=== PATIENT | female | born 1995 | race Caucasian/White ===

== ENCOUNTER 2016-06-26 05:37 | Inpatient (IN) | payer OTHER ==
[2016-06-26] MEDS ORDERED: OXYTOCIN 1,000 ML IV SCH (05:42)
[2016-06-26] MEDS ORDERED: LR 1,000 ML IV SCH ×2 (05:42→21:00)
[2016-06-26] MEDS ORDERED: BUTORPHANOL 1 MG/ML VIAL IV PRN ×2 (05:42→19:54)
[2016-06-26] MEDS ORDERED: LR 500 ML IV PRN ×2 (05:42→14:35)
[2016-06-26 05:58] LABS: AUTOMATED BASOPHIL 0.5 % (0-2); AUTOMATED EOSINOPHIL 0.9 % (0-5); AUTOMATED LYMPH 29.2 % (17-44); AUTOMATED MONOCYTE 7.3 % (3-10); AUTOMATED NEUTROPHIL 62.1 % (45-76); MPV 11.2 fL (7.4-10.4)
[2016-06-26] MEDS ORDERED: LIDOCAINE 1% 30 ML VIAL (PRESERVATIVE FREE) ONE (06:14)
[2016-06-26 06:17] VITALS: BMI 34.4
--- NOTE | 2016-06-26 07:35 | HISTPHYS ---
- HISTORY OF PRESENT ILLNESS Age: 20 Estimated Due Date: 06/26/16 Gestational Age: 40 : 1 Para: 0 Patient Presents to:: Labor & Delivery Presents for:: Induction of Labor (Pt has requested elective induction of labor) Current : No Complications, GBS - - REVIEW OF SYSTEMS Reports/Denies: Reports: Contractions (Mild and irregular), Movement ( Normal). Denies: Complaints, Vaginal Bleeding, Leaking Fluid Pain: Reports: None - ALLERGIES Allergies Allergy/AdvReac Type Severity Reaction Status Date / Time Latex, Natural Rubber Allergy Hives* Verified 06/26/16 06:32 - PAST MEDICAL HISTORY Reports: Depression, GI Disorders (IBS) - PAST SURGICAL HISTORY Reports: Tonsillectomy - FAMILY HISTORY Family History: Noncontributory - SOCIAL HISTORY Travel Outside of [place] in the Last 3 Months?: No Smoking Status: Former smoker Social History: Denies: Alcohol Use Marital Status: Single (Never ) - GENITOURINARY HISTORY Gynecologic History: Reports: None HX : 1 Para: 0 Live Deliveries (# of pregnancies resulting in a live ): 0 - PHYSICAL EXAM Vital Signs:: Temperature: 97.7 F (06/26/16 06:19) HR: 85 (06/26/16 06:19) RR: 18 (06/26/16 06:19) BP: 140/82 (06/26/16 06:19) Pulse Ox: () GENERAL: Alert, Oriented, No Acute Distress ABDOMEN: Gravid, Non-Distended, Non-Tender, Soft Fundal Height (cm): 39 GENITOURINARY: Normal. negative: Lesions, Mass, Swelling, Discharge MUSCULOSKELETAL: Normal. negative: Atrophy EXTERMITIES: Moves All Extremeties. negative: Pain/Tenderness Dilation (cm): 2 Effacement (%): 60 Station: -3 Heart Rate: 130 Reactive, Moderate Variability. negative: Decelerations Contractions: Irregular Membranes: Intact Amniotic Fluid: Clear - PLAN Admit, Induction of Labor (Pt counseled on the risks of hyperstimulation with distress and emergent . )
[2016-06-26] MEDS ORDERED: Vaccine Screening Complete SCH (08:00)
[2016-06-26] MEDS ORDERED: PROPOFOL 200 MG/20 ML VIAL IV ONE (11:25)
[2016-06-26] MEDS ORDERED: LIDOCAINE 4% 5 ML AMPULE NEB ONE (11:25)
[2016-06-26] MEDS ORDERED: SUCCINYLCHOLINE 20 MG/1 ML INJ 10 ML MDV IV ONE (11:25)
[2016-06-26] MEDS ORDERED: ONDANSETRON HCL 4 MG/2 ML VIAL IV ONE (11:25)
[2016-06-26] MEDS ORDERED: Fentanyl/Bupivacaine 100 ML EPI ONE (13:55)
[2016-06-26] MEDS ORDERED: ONDANSETRON HCL 4 MG/2 ML VIAL IV PRN (14:35)
[2016-06-26] MEDS ORDERED: EPHEDrine 50 MG/ML VIAL IV PRN (14:35)
[2016-06-26] MEDS ORDERED: DIPHENHYDRAMINE 50 MG/ML VIAL IV PRN (14:35)
[2016-06-26] MEDS ORDERED: METOCLOPRAMIDE 10 MG/2 ML VIAL IV PRN (14:35)
[2016-06-26] MEDS ORDERED: NALOXONE 0.4 MG/ML AMPULE IV PRN (14:35)
[2016-06-26] MEDS ORDERED: LR 500 ML IV ONE (14:35)
--- NOTE | 2016-06-26 14:36 | HIM.ANES ---
Anesthesia Evaluation & Plan - Focused Review of Systems Cardiac History: No: Hx Cardiac Disorders HEENT: Yes: Other HEENT Problems Hx Other HEENT Problems: LARGE TONSILS, NASAL CONGESTION Gastrointestinal: Yes: Hx Gastroesophageal Reflux Disease, Hx Gastrointestinal Disorders Neurological/Musculoskeletal: Yes: Hx Migraine, Hx Neurological Disorders Psychological: Yes Hx Anxiety, Yes Hx Mental/Emotional Disorders, Yes Hx Bipolar Disorder HX Other Psyco/Soc Problems: DEP/ANX Blood/Autoimmune: No: Hx Blood Transfusions, Hx Anemia, Hx AIDS, Hx Sickle Cell Disease Smoking Status: Former smoker Past Social History: Denies: Alcohol Use Surgical History: Yes: T&A (2013) - Focused Physical Exam Mallampati: Class III Thyromental Distance: Greater than 3 Cardiovascular/Chest: Normal Respiratory: Lungs clear Any problems with anesthesia, including nausea and vomiting?: No Any relatives with a history of Malignant Hyperthermia?: No Beta Leticia given (if appropriate): N/A Other: Problem List Problem Status Onset Acute bronchitis Acute Concussion with no loss of consciousness Acute Contusion of knee Acute CBC/BMP/Other 06/26/16 05:55 Allergies Allergy/AdvReac Type Severity Reaction Status Date / Time Latex, Natural Rubber Allergy Hives* Verified 06/26/16 06:32 Home Medications Medication Instructions Recorded Last Taken Type Vits W-Ca,Fe,FA(<1Mg) 1 each PO DAILY 11/21/15 06/25/16 22:00 History [] Height and Weight Patient's height 5 ft 7 in Patient's weight 256 lb BMI 34.4 Vital Signs Temperature 97.7 F 06/26/16 14:13 Pulse Rate 85 06/26/16 06:19 Respiratory Rate 18 06/26/16 06:19 Blood Pressure 140/82 06/26/16 06:19 Pulse Oxygen Saturation - Anesthetic Plan Anesthesia Type: Epidural ASA Class: 3 -: I have examined this patient and reviewed the medical record. The patient has been assessed prior to anesthesia. Risks and benefits of anesthesia and anesthetic technique options have been discussed and all questions answered. The patient accepts the risk and desires me to proceed with the planned anesthetic.
[2016-06-26] MEDS ORDERED: Fentanyl/Bupivacaine 100 ML EPI SCH (15:00)
--- NOTE | 2016-06-26 15:02 | HIM.ANESP ---
Procedure Note DATE OF PROCEDURE: 06/26/16 PREOPERATIVE DIAGNOSIS: Labor Pain Control. POSTOPERATIVE DIAGNOSIS: Same PROCEDURE: Epidural PERFORMING PROVIDER: Griffin Alvarado MD DIAGNOSIS: Labor SURGEON: [Iman] TIME OUT: [1441] Anesthesia START time: [1441] Anesthesia STOP (Delivery) Time : MEDICATIONS: INF Bupivacaine 0.125% + Fentanyl 3mcg/ml ml/hr NEEDLE: Tuohy 17G STERILE BARRIERS: sterile x 3, mask, sterile gloves. APPROACH: [Paramedian Right] ATTEMPTS: [2] COMPLICATIONS: None. BLOOD LOSS: 0 cubic centimeters. PROCEDURE FINDINGS AND TECHNIQUE: At the request of the patient and media theorist and author of , an Epidural Block was performed for labor pain relief. Epidural Risk, benefits and alternatives of the procedure were explained and questions answered. Informed consent was obtained, confirmed with patient and on chart. Time out was performed. Contraction, Pulse oximetry, EKG and BP monitoring were established. The patient is a [sitting] position and lumbar area was prepped and draped in a sterile manner. Skin anesthesia was obtained with 1% Xylocaine infiltration. The [Epidural] was done in the usual manner, at L3/4, 2nd pass YOUSUF. A Tuohy needle was inserted with loss of resistance to [NS] @ [8] cm. Local anesthetic was injected in incremental volumes with negative aspirations throughout, Bolus dose: Lidocaine [1] % [3] cc. There was no pain on injection. Epidural catheter threaded [5] cm into epidural space. Test dose Lidocaine 1.5 % with epinephrine 1:200,000, 3 ml via epidural catheter. Negative test dose. SaO2 [98]% EKG SR Loading Dose 0 mcg/ml Fentanyl Infusing Dose Bupivacaine 0.125% + Fentanyl 3mcg/ml ml/hr See Watch Child Record (chart) Patient tolerated the procedure well without complications.
[2016-06-26] MEDS ORDERED: BUTORPHANOL 1 MG/ML VIAL ONE (20:07)
[2016-06-26] MEDS ORDERED: LR 1,500 ML IV ONE (20:59)
[2016-06-26] MEDS ORDERED: CEFAZOLIN 1 GM VIAL IV ONE (20:59)
--- NOTE | 2016-06-26 21:03 | OBGYNPROG ---
Note No significant cervical change or head decent since 1330. MVUs now adequate for > 2 hrs. I have recommended section for failure to progress. The procedure has been described in simple details and the patient has been told the risks including hemorrhage, infection, damage to adjacent organs as well as complications due to anesthesia. She wishes to proceed.
[2016-06-26] MEDS ORDERED: HYDROmorphone 2 MG/ML VIAL ONE (22:03)
[2016-06-26] MEDS ORDERED: NALOXONE 0.4 MG/ML AMPULE ONE (22:07)
--- NOTE | 2016-06-26 23:06 | HIMOPRPT ---
DATE OF PROCEDURE: 06/26/16 PREOPERATIVE DIAGNOSIS: Post term induction, failure to progress POSTOPERATIVE DIAGNOSIS: Post term induction, failure to progress PROCEDURE: Primary low-transverse section. SURGEON: Zeeshan Valerio MD. ANESTHESIA: GET COMPLICATIONS: None. ESTIMATED BLOOD LOSS: 600 mL. FINDINGS: Live-born female infant, Apgars 8 at 1, 10 at 5, 7 pounds 11 ounces. Clear fluid and intact placenta. Normal uterus, ovaries, and fallopian tubes bilaterally. PROCEDURE IN DETAIL: The patient was taken to the operating room and after adequate spinal anesthesia was achieved, she was prepped and draped as a sterile field. A Henning catheter had been previously placed. A Pfannenstiel incision was made 2 fingerbreadths above the pubic symphysis and carried down to the fascia sharply. The fascia was incised in midline with a scalpel and extended laterally with Saenz scissors. The fascia was dissected off the underlying rectus muscles sharply. The rectus muscles were . The peritoneum was isolated and entered. The peritoneal incision was extended superiorly and inferiorly with Metzenbaum scissors, bladder blade was placed. The peritoneum overlying the lower uterine segment was incised with Metzenbaum scissors to creat a bladder flap behind on which the bladder blade was placed. A 1 centimeter incision was made in lower uterine segment with a scalpel and extended laterally in a blunt fashion. The infant's head was delivered and suction on the maternal abdomen. The body was delivered, the umbilical cord was clamped and cut and the baby was handed off to the awaiting conductor orchestra. The placenta was manually delivered and the uterus was externalized. The uterine cavity was wiped clean with a lap pad and noted to be devoid of any retained placental fragments. The uterine incision was closed with a running locking #1 chromic suture and a second #1 imbricating running suture. The uterus was then returned to the abdomen and irrigated with copious amounts of sterile saline, hemostasis was noted to be adequate at that time. The rectus muscles and peritoneum were reapproximated using interrupted 0 chromic sutures. The rectus fascia was closed with a running 0 Vicryl suture. Subcutaneous tissue was closed with running 2-0 plain suture. The skin incision was closed with a subcuticular 4-0 Vicryl suture and Dermabond. Once sponge and instrument counts were correct x3. The patient was taken to the [facility] in stable condition. The baby was also brought to the [facility].
--- NOTE | 2016-06-26 23:07 | PCM.DCS92 ---
- Primary/Secondary Discharge Diagnoses (1) Delivered by section Acute O82 - ENCOUNTER FOR DELIVERY WITHOUT INDICATION Present on Admission: No - HOSPITAL COURSE /Op Complications: None - DISCHARGE INSTRUCTIONS Discharge Disposition: Home Discharge Condition: Good Cognitive Discharge Status: Unimpaired Fuctional Discharge Status: Independent Patient Leaving with Prescriptions?: Yes Home Medications/ New Prescriptions: New Ibuprofen Tablet [Motrin] 800 mg PO Q6-8H PRN #30 tab PRN Reason: Pain Oxycodone HCl/Acetaminophen [Percocet 5-325 mg Tablet] 1 - 2 tab PO Q4H PRN # 60 tab PRN Reason: Pain No Action Vits W-Ca,Fe,FA(<1Mg) [] 1 each PO DAILY - Diet Diet at Discharge: Regular - Activity Activity: No Heavy Lifting, Pelvic Rest, No Driving No Driving for: Until After Post op Follow-up Appointment - Instructions Call Physician for: Severe Abdominal Cramps, Foul Smelling Discharge, Pain/ Redness in Calf/Leg, Soaking Pad in 1 hr, Increased Pain at Wound, Redness at Wound, Temperature Above 100.4, Drainiage from Wound - Incision Incision, Lacerations, or Tears: Yes - DC Summary Notes Discharge Medications: *See "Discharge Medication List" for a complete list of Home Medications and Discharge Medications.* Obstetric Hospital Course - Admitting Diagnosis Reason for Visit: Induction of Labor Admission Date: 06/26/16 Admission time: 06:04 Gestational Age: 40 - Infant Data Feeding Plans for Infant: Breast
--- NOTE | 2016-06-26 23:09 | OBDELNOTE ---
Delivery Note - Problem/Diagnosis (1) Delivered by section Status: Acute - Admitting Diagnosis Reason for Visit: Induction of Labor Admission Date: 06/26/16 Admission time: 06:04 Gestational Age: 40 - Procedures Procedure(s): None Labor Anesthesia/Analgesia: Epidural, Spinal Anesthesia, General Anesthesia Date: 06/26/16 Time: 22:30 Delivery Presentation: Vertex : Primary Reason: Failure to Progress Skin Incision: Pfannenstiel Uterine Incision: Low Transverse EBL: 600 Fluid: Clear Placenta: Manual Removal Description: Normal - Procedures Procedures: None - Data Order: Petersen Sex: Female Weight: 3.487 kg (1min): 8 (5min): 10 Feeding Plans for Infant: Breast Plans Circumcision: No [place] Complications: No Complications [place] to:: [facility]/Mother's Room - /Operative Complications /Op Complications: None Discharge Planning - REASON FOR ADMISSION Patient Presents to:: Labor & Delivery Reason for Visit: Induction of Labor (Pt has requested elective induction of labor) - DISCHARGE INSTRUCTIONS Condition: Good Prescriptions: Ibuprofen Tablet [Motrin] 800 mg PO Q6-8H PRN #30 tab PRN Reason: Pain Oxycodone HCl/Acetaminophen [Percocet 5-325 mg Tablet] 1 - 2 tab PO Q4H PRN #60 tab PRN Reason: Pain Diet at Discharge: Regular Activity: No Heavy Lifting, Pelvic Rest, No Driving Incision, Lacerations, or Tears: Yes
[2016-06-26] MEDS ORDERED: FENTANYL 100 MCG/2 ML VIAL ONE (23:29)
[2016-06-26] MEDS ORDERED: FENTANYL 100 MCG/2 ML VIAL IV PRN (23:51)
[2016-06-27] MEDS ORDERED: HYDROmorphone 50 ML IV PRN (00:12)
[2016-06-27] MEDS ORDERED: OXYCODONE HCL 5 MG TABLET PO PRN (00:12)
[2016-06-27] MEDS ORDERED: OXYTOCIN 1,000 ML IV ONE (00:12)
[2016-06-27] MEDS ORDERED: SODIUM CHLORIDE 0.9% 3 ML FLUSH FLUSH PRN (00:12)
[2016-06-27] MEDS ORDERED: PROMETHAZINE 25 MG/ML VIAL IV PRN (00:12)
[2016-06-27] MEDS ORDERED: LANOLIN OINTMENT 0.25 OZ TUBE TOP PRN (00:12)
[2016-06-27] MEDS ORDERED: ONDANSETRON HCL 4 MG/2 ML VIAL IV PRN ×2 (00:12→06:46)
[2016-06-27] MEDS ORDERED: ACETAMINOPHEN 325 MG/TAB TABLET PO PRN (00:12)
[2016-06-27] MEDS ORDERED: Pharmacy Order Set Alert SCH (00:12)
[2016-06-27] MEDS: IBUPROFEN 800 MG TAB PO SCH ×4 (00:31→18:09)
[2016-06-27] MEDS ORDERED: LR 1,000 ML IV SCH (06:00)
[2016-06-27] MEDS ORDERED: SODIUM CHLORIDE 0.9% 3 ML FLUSH FLUSH SCH (06:00)
[2016-06-27] MEDS ORDERED: HYDROmorphone 1 MG INJECTION IV PRN ×2 (06:46)
[2016-06-27] MEDS ORDERED: LABETALOL 20 MG/4 ML SYRINGE IV PRN (06:46)
[2016-06-27] MEDS ORDERED: hydrALAZINE 20 MG/ML VIAL IV PRN (06:46)
[2016-06-27] MEDS ORDERED: ONDANSETRON HCL 4 MG ODT TAB PO PRN (06:46)
[2016-06-27] MEDS ORDERED: MEPERIDINE 25 MG/ML TUBEX IV PRN (06:46)
[2016-06-27] MEDS ORDERED: FENTANYL 100 MCG/2 ML VIAL IV PRN ×2 (06:46)
--- NOTE | 2016-06-27 06:47 | SC.ANESPOS ---
Post-Anesthesia Note LOC: Fully Awake Post-Anesthesia Assessment: Awake, Returned to Baseline, Hemodynamically Stable , Pain Control Adequate Phase I & II Recovery Complete: Yes Apparent Anesthesia Complication: No : N PACU Discharge Time: 00:05 - Vital Signs Blood Pressure: 125/74 Pulse: 120 Resp Rate: 16 O2 Sat: 95 Temp: 99.1 F - Comments Anesthesia Discharge Time Report Time 00:05
--- NOTE | 2016-06-27 07:49 | OBGYNPROG ---
- Subjective Post Day: 1 Post Op Day: 1 Reports: Out of Bed, Tolerating Regular Diet, Voiding Freely, Light Bleeding, Well, Fatigue. Denies: Dizziness, Nausea, Vomitting, Chest Pain, Shortness of Breath Pain: Reports: Well Managed, Abdominal, Incision - Objective Vital Signs: Last Vital Signs Temp 99.1 F 06/27/16 06:47 Pulse 120 H 06/27/16 06:47 Resp 16 06/27/16 06:47 BP 125/74 06/27/16 06:47 Pulse Ox 95 06/27/16 06:47 General: Alert, Oriented, No Acute Distress ABDOMEN: Non-Distended, Soft, Tender (mild, expected) Abdominal Incision: Dermabond Intact. negative: Redness, Drainage, Ecchymotic Fundus: At Umbilicus, Firm Bladder: Voiding & Emptying OBGYN Progress Note Progress Note: Laboratory Results - last 24 hr 06/26/16 06/26/16 06/26/16 05:55 05:55 05:55 WBC 8.8 RBC 4.06 L Hgb 12.2 Hct 35.8 L MCV 88 MCH 30.1 MCHC 34.2 RDW 13.8 Plt Count 111 L MPV 11.2 H Neut % (Auto) 62.1 Lymph % (Auto) 29.2 [place] % (Auto) 7.3 Eos % (Auto) 0.9 Baso % (Auto) 0.5 Absolute Neuts (auto) 5.46 Absolute Lymphs (auto) 2.55 Platelet Estimate Occ giant platelet RBC Morphology 1+ polychrom RPR Nonreactive Blood Type O POSITIVE Antibody Screen Negative 06/26/16 06/27/16 20:59 06:25 WBC RBC Hgb 9.9 L D Hct 29.3 L MCV MCH MCHC RDW Plt Count MPV Neut % (Auto) Lymph % (Auto) [place] % (Auto) Eos % (Auto) Baso % (Auto) Absolute Neuts (auto) Absolute Lymphs (auto) Platelet Estimate RBC Morphology RPR Blood Type Cancelled Antibody Screen Cancelled - ASSESSMENT (1) care following delivery Status: Acute Code(s): Z39.2 - ENCOUNTER FOR ROUTINE FOLLOW-UP - PLAN Routine Care, Ambulate, Out of Bed, Discontinue MEDIA CENTER ASSISTANT, Start PO Meds, Supportive Care
[2016-06-27] MEDS ORDERED: VARICELLA VIRUS VACCINE VIAL SQ ONE (08:00)
[2016-06-27] MEDS: OXYCODONE HCL 5 MG TABLET PO PRN ×4 (08:18→22:41)
[2016-06-27] MEDS: DOCUSATE-SENNA CONCENTRATE TAB PO SCH ×2 (09:16→20:40)
[2016-06-28] MEDS: IBUPROFEN 800 MG TAB PO SCH ×2 (00:16→05:14)
[2016-06-28] MEDS: OXYCODONE HCL 5 MG TABLET PO PRN (04:05)
[2016-06-28 05:19] VITALS: BP 133/64; PULSE 120; TEMP 99.6
--- NOTE | 2016-06-28 07:28 | OBGYNPROG ---
- Subjective Post Day: 2 Post Op Day: 2 Reports: Ambulating, Out of Bed, Tolerating Regular Diet, Voiding Freely, Passing Flatus, Moderate Lochia. Denies: Complaints, Dizziness, Headache, Nausea, Vomitting, Palpitations, Chest Pain, Shortness of Breath Pain: Reports: Well Managed - Objective Vital Signs: Last Vital Signs Temp 99.6 F 06/28/16 05:18 Pulse 120 H 06/28/16 05:18 Resp 18 06/28/16 05:18 BP 133/64 06/28/16 05:18 Pulse Ox 95 06/27/16 06:47 General: Alert, Oriented, No Acute Distress Cardiovascular/Chest: Normal Respiratory: Normal - CTA ABDOMEN: Bowel Sounds Present, Non-Tender, Soft Abdominal Incision: Dermabond Intact, Incision Clean/Dry/Intact Fundus: Firm. Denies: Tender EXTERMITIES: Moves All Extremeties, Edema LEATHA'S SIGN: Denies: Bilateral OBGYN Progress Note - ASSESSMENT (1) care following delivery Status: Acute Code(s): Z39.2 - ENCOUNTER FOR ROUTINE FOLLOW-UP - PLAN Routine Care, Discharge (instructions given), Supportive Care
[2016-06-28] MEDS ORDERED: VARICELLA VIRUS VACCINE VIAL SQ ONE (08:00)
== END 2016-06-28 11:26 | disposition home or self-care (01) | DRG 766 ==
LOC: MASU 05:37
PROVIDERS: ADMIT Obstetrics & Gynecology; ATTEND Obstetrics & Gynecology
PROC: 10D00Z1 Extraction of Products of Conception, Low, Open Approach (ICD-10-PCS; principal; 2016-06-26 21:30)
DX: O48.0 Post-term pregnancy (principal); O62.2 Other uterine inertia; Z87.891 Personal history of nicotine dependence; Z37.0 Single live birth; Z3A.40 40 weeks gestation of pregnancy; Z28.21 Immunization not carried out because of patient refusal
CPT/HCPCS: 62318; 81002; 85014; 85018; 85025; 86592; 86850; 86900; 86901; 90716; 96361; 96365; 96366; 96375; J0330; J0595; J0690; J1170; J2001; J2310; J2405; J2550; J2590; J3010; J3490